=== PATIENT | male | born 1955 | race Caucasian/White ===

== ENCOUNTER → 2016-07-27 | Outpatient (CLI) | payer OTHER | END | disposition home or self-care (01) | LOC: PCVCIMAG 13:38 | PROVIDERS: ATTEND Internal Medicine | DX: I25.10 Atherosclerotic heart disease of native coronary artery without angina pectoris (principal); Q23.1 Congenital insufficiency of aortic valve; E78.00 Pure hypercholesterolemia, unspecified; I10 Essential (primary) hypertension; Z79.01 Long term (current) use of anticoagulants; Z95.2 Presence of prosthetic heart valve | CPT/HCPCS: 80061; 85610; 93306 ==

== ENCOUNTER → 2017-07-11 | Outpatient (CLI) | payer OTHER | END | disposition home or self-care (01) | LOC: PCVCIMAG 12:51 | DX: I25.10 Atherosclerotic heart disease of native coronary artery without angina pectoris (principal); I08.0 Rheumatic disorders of both mitral and aortic valves; E78.5 Hyperlipidemia, unspecified; I25.5 Ischemic cardiomyopathy; Z95.2 Presence of prosthetic heart valve; Z79.01 Long term (current) use of anticoagulants; Z95.1 Presence of aortocoronary bypass graft; Z79.82 Long term (current) use of aspirin; Z79.899 Other long term (current) drug therapy; Z87.891 Personal history of nicotine dependence | CPT/HCPCS: 80061; 93005; 93306; G0463 ==

== ENCOUNTER → 2017-08-02 | Outpatient (CLI) | payer OTHER | END | disposition home or self-care (01) | LOC: PCVCIMAG 12:33 | DX: I25.10 Atherosclerotic heart disease of native coronary artery without angina pectoris (principal); I25.2 Old myocardial infarction; Q23.1 Congenital insufficiency of aortic valve; J44.9 Chronic obstructive pulmonary disease, unspecified; I10 Essential (primary) hypertension; Z95.1 Presence of aortocoronary bypass graft | CPT/HCPCS: 93325; 93351 ==

== ENCOUNTER → 2018-06-30 | Outpatient (CLI) | payer OTHER | END | disposition home or self-care (01) | LOC: PCVCCLINIC 08:03 | PROVIDERS: ATTEND Internal Medicine | DX: Z51.81 Encounter for therapeutic drug level monitoring (principal); E78.5 Hyperlipidemia, unspecified; I25.10 Atherosclerotic heart disease of native coronary artery without angina pectoris; Z79.01 Long term (current) use of anticoagulants; Z95.2 Presence of prosthetic heart valve; Z95.1 Presence of aortocoronary bypass graft | CPT/HCPCS: 36415; 85610 ==

== ENCOUNTER → 2018-07-17 | Outpatient (CLI) | payer BC, OTHER ==
--- NOTE | 2018-07-17 16:53 | PCVCIMAG ---
APPROVED REPORT Study performed: 07/17/2018 13:06:55 EXAM: Comprehensive 2D, Doppler, and color-flow Echocardiogram Patient Location: Echo lab Status: routine BSA: 1.98 HR: 53 bpmBP: 204/86 mmHg Rhythm: NSR Other Information Study Quality: Adequate Risk Factors: Cardiac Risk Factors: Hyperlipidemia, HTN Indications Prosthetic Valve CAD Bicuspid Aortic Valve #24 [place] mechanical mitral valve (2004) S/P CABG x1 (2004) 2D Dimensions IVSd: 10.07 (7-11mm)LVOT Diam: 20.00 (18-24mm) LVDd: 44.99 mm PWd: 10.37 (7-11mm)Ascending Ao: 33.28 (22-36mm) LVDs: 33.14 (25-40mm) Left Atrium: 44.07 (27-40mm) Aortic Root: 25.58 mm LV Single Plane 4CH: 62.35 % LV Single Plane 2CH: 57.82 % Biplane EF: 59.8 % Volumes Left Atrial Volume (Systole) Single Plane 4CH: 87.77 mLSingle Plane 2CH: 64.23 mL LA ESV Index: 40.00 mL/m2 Aortic Valve AoV Peak Patricio.: 2.46 m/s AO Peak Gr.: 24.27 mmHgLVOT Max P.09 mmHg AO Mean Gr.: 13.46 mmHgLVOT Mean P.29 mmHg AO V2 Mean: 1.78 m/sLVOT Max V: 1.13 m/s AO V2 VTI: 62.09 cmLVOT Mean V: 0.70 m/s OSCAR (VTI): 1.36 [id number] V1 VTI: 26.80 cm OSCAR Vmax: 1.45 cm2 AI Vmax: 4.68 m/sSV (LVOT): 84.46 mL AI Kern: 2.34 m/s2 AI PHT: 593.92 ms Mitral Valve MV PHT: 103.65 ms MVA (PHT): 2.12 cm2 IVRT: 48.44 ms TDI Medial E' Patricio.: 0.05 m/s Lateral E' Patricio.: 0.06 m/s Pulmonary Valve PV Peak Patircio.: 1.00 m/sPV Peak Gr.: 4.03 mmHg Pulmonary Vein P Vein S: 0.78 m/sP Vein A: 0.22 m/s P Vein D: 0.76 m/sP Vein A Dur.: 69.2 msec P Vein S/D Ratio: 1.03 Tricuspid Valve RAP Estimate: 7.00 mmHg Left Ventricle The left ventricle is normal size. There is normal LV segmental wall motion. There is normal left ventricular wall thickness. Left ventricular systolic function is normal. The left ventricular ejection fraction is within the normal range. LVEF is 55-60%. This study is not technically sufficient to allow evaluation of the LV diastolic function. Right Ventricle The right ventricle is normal size. The right ventricular systolic function is normal. Atria Left atrium is mildly dilated. The right atrium size is normal. Aortic Valve Aortic valve is bicuspid. Mild aortic regurgitation. Aortic peak valve gradient is 24 mmHg and mean gradient is 13 mmHg.The aortic valve area is 1.4 cm2. Mild aortic stenosis. Mitral Valve #24 [facility] mitral valve is present. The peak mitral valve gradient is 12 mmHg and the mean is [address] #24 [address] [place] mitral valve is present. There is no mitral valve regurgitation noted. No evidence of mitral valve stenosis. Tricuspid Valve The tricuspid valve is normal in structure. There is no tricuspid valve regurgitation noted. Pulmonic Valve The pulmonary valve is normal in structure. Trace pulmonic regurgitation. Great Vessels The aortic root is normal in size. IVC is normal in size and collapses >50% with inspiration. Pericardium There is no pericardial effusion. <Conclusion> Left ventricular systolic function is normal. There is normal LV segmental wall motion. LVEF is 55-60%. Left atrium is mildly dilated. Probable bicuspid aortic valve, mildly stenotic and insufficient Aortic peak valve gradient 24 mmHg and mean gradient is 13 mmHg.The aortic valve area is 1.[address] #24 [address] mitral valve. Peak gradient 12 mmHg, 3 mean gradient. Normal function Pulmonary artery pressure could not be reliably ascertained There is no pericardial effusion.
--- NOTE | 2018-07-17 17:06 | PCVCIMAG ---
APPROVED REPORT Study performed: 07/17/2018 14:47:48 Exam: Stress Echocardiogram Indication: CAD , Hypertension, Mitral Valve Disease,bicuspid AO valve Patient Location: Echo lab Stress Nurse: Delphine Gomez RN Room #: 2 Status: routine Ht: 5 ft 8 in HR: 55 bpm BP: 194/100 mmHg Rhythm: Sinus Bradycardia Medical History Medical History: CAD, Isch CM, MV replacement,Bicuspid AO valve Cardiac Risk Factors: HTN Previous Cardiac Procedures: MVR Pretest Chest Pain Characteristics: No chest pain Exercise History: Indeterminate Procedure The patient underwent an Exercise Stress Test using the Yadira Protocol. Blood pressure, heart rate, and EKG were monitored. An Echocardiogram was performed by eligibility technician in four stages in quad fashion. At peak stress, four selected images were obtained and placed side by side with resting images for comparison. Stress Test Details Stress Test: Exercise stress testing was performed using a Yadira protocol. HR Resting HR: 55 bpmMax Heart Rate (APMHR): 156 bpm Max HR Achieved: 160 bpmTarget HR (85% APMHR): 132 bpm % of APMHR: 102 Recovery HR: 101 bpm HR response to stress: Pt went into SVT at peak exercise then into A fib w RVR BP Resting BP: 194/100 mmHg Max BP: 180/84 mmHg Recovery BP: 178/92 mmHg BP response to stress: hypertensive response to stress. ECG Resting ECG: Sinus Bradycardia with LVH Stress ECG: Atrial Fibrillation ST Change: Horizontal ST depression Maximum ST Deviation: 1 mm Recovery ECG: Atrial Fibrillation Recovery ST Change: Ischemic Recovery ST Deviation: 0.5 mm Recovery Arrhythmia: Atrial Fibrillation Clinical Reason for Termination: Maximal effort Stress Symptoms: fatigue Exercise duration: 7 min 11 sec Highest Stage Achieved: Stage 3: 3.4 mph at 14% grade. Exercise capacity: 10.1 METs Overall Exercise Capacity for Age: Average Angina Score: None No complications. Stress ECG Conclusion The patient exercised according to the YADIRA protocol for 7:11 mins; achieving a work level of 10.1 METS. The resting heart rate of 55 bpm flaquito to a maximum heart rate of 160 bpm. This value represent 102% of the maximal, age-predicted heart rate. The resting blood pressure of 194/100mmHg, flaquito to a maximum blood pressure of 180/84 mmHg. The exercise test was stopped due to fatigue . Villegas Treadmill Score is 2.0 which is Moderate risk. Pre-Stress Echo The resting Echocardiogram showed normal left ventricular contractility with an estimated Ejection Fraction of about 55-60%. Post-Stress Echo The stress Echocardiogram showed normal left ventricular contractility with an estimated Ejection Fraction of about 60-65%. Normal augmentation of wall motion in all segments on post stress images. Conclusion Clinical Response: Non-ischemic Exercise Capacity: Average Stress ECG Response: Ischemic Stress Echo Images: Non-ischemic Normal stress echocardiogram with maximal exercise stress. Ischemic electrocardiographic changes, likely false positive response in setting of LVH Exercise-induced atrial fibrillation, rate controlled and asymptomatic at conclusion of study <Conclusion> Normal stress echocardiogram with maximal exercise stress. Ischemic electrocardiographic changes, likely false positive response in setting of LVH Exercise-induced atrial fibrillation, rate controlled and asymptomatic at conclusion of study
== END | disposition home or self-care (01) ==
LOC: PCVCIMAG 13:02
PROVIDERS: ATTEND Internal Medicine
DX: I25.5 Ischemic cardiomyopathy (principal); I25.10 Atherosclerotic heart disease of native coronary artery without angina pectoris; E78.5 Hyperlipidemia, unspecified; Q23.1 Congenital insufficiency of aortic valve; Z95.2 Presence of prosthetic heart valve; Z95.1 Presence of aortocoronary bypass graft; Z86.79 Personal history of other diseases of the circulatory system
CPT/HCPCS: 93306; 93351

== ENCOUNTER → 2019-05-11 | Outpatient (CLI) | payer MEDICARE | END | disposition home or self-care (01) | LOC: PCVCCLINIC 08:30 | PROVIDERS: ATTEND Internal Medicine | DX: Z51.81 Encounter for therapeutic drug level monitoring (principal); I25.5 Ischemic cardiomyopathy; I48.0 Paroxysmal atrial fibrillation; E78.5 Hyperlipidemia, unspecified; Z95.2 Presence of prosthetic heart valve; Z79.01 Long term (current) use of anticoagulants | CPT/HCPCS: 36415; 85610 ==

== ENCOUNTER → 2019-06-02 | Outpatient (CLI) | payer MEDICARE | END | disposition home or self-care (01) | LOC: PCVCCLINIC 11:13 | PROVIDERS: ATTEND Internal Medicine | DX: I25.10 Atherosclerotic heart disease of native coronary artery without angina pectoris (principal); R94.31 Abnormal electrocardiogram [ECG] [EKG]; I48.0 Paroxysmal atrial fibrillation; E78.5 Hyperlipidemia, unspecified; A49.1 Streptococcal infection, unspecified site; J44.9 Chronic obstructive pulmonary disease, unspecified; I25.2 Old myocardial infarction; Q23.1 Congenital insufficiency of aortic valve; Z95.1 Presence of aortocoronary bypass graft; Z79.01 Long term (current) use of anticoagulants; Z95.0 Presence of cardiac pacemaker; Z87.891 Personal history of nicotine dependence; Z88.0 Allergy status to penicillin; Z79.899 Other long term (current) drug therapy | CPT/HCPCS: 36415; 85610; 93005; G0463 ==

== ENCOUNTER → 2019-06-09 | Outpatient (CLI) | payer MEDICARE | END | disposition home or self-care (01) | LOC: PCVCCLINIC 09:00 | PROVIDERS: ATTEND Internal Medicine | DX: Z51.81 Encounter for therapeutic drug level monitoring (principal); I25.10 Atherosclerotic heart disease of native coronary artery without angina pectoris; I25.5 Ischemic cardiomyopathy; E78.5 Hyperlipidemia, unspecified; I48.0 Paroxysmal atrial fibrillation; J44.9 Chronic obstructive pulmonary disease, unspecified; I25.2 Old myocardial infarction; Z79.01 Long term (current) use of anticoagulants; Z95.2 Presence of prosthetic heart valve; Z95.1 Presence of aortocoronary bypass graft; Z87.891 Personal history of nicotine dependence | CPT/HCPCS: 36415; 85610 ==

== ENCOUNTER → 2019-06-16 | Outpatient (CLI) | payer MEDICARE | END | disposition home or self-care (01) | LOC: PCVCCLINIC 15:13 | PROVIDERS: ATTEND Internal Medicine | DX: Z51.81 Encounter for therapeutic drug level monitoring (principal); I48.0 Paroxysmal atrial fibrillation; I25.10 Atherosclerotic heart disease of native coronary artery without angina pectoris; E78.5 Hyperlipidemia, unspecified; Z95.2 Presence of prosthetic heart valve; Z79.01 Long term (current) use of anticoagulants; Z95.1 Presence of aortocoronary bypass graft | CPT/HCPCS: 36415; 85610 ==

== ENCOUNTER → 2019-06-30 | Outpatient (CLI) | payer MEDICARE | END | disposition home or self-care (01) | LOC: PCVCCLINIC 08:50 | PROVIDERS: ATTEND Internal Medicine | DX: Z51.81 Encounter for therapeutic drug level monitoring (principal); I48.0 Paroxysmal atrial fibrillation; I25.10 Atherosclerotic heart disease of native coronary artery without angina pectoris; E78.5 Hyperlipidemia, unspecified; Z95.2 Presence of prosthetic heart valve; Z79.01 Long term (current) use of anticoagulants; Z95.1 Presence of aortocoronary bypass graft | CPT/HCPCS: 36415; 85610 ==